=== PATIENT | female | born 1980 | race Caucasian/White ===

== ENCOUNTER 2017-07-09 16:14 | Emergency (ER) | payer MEDICAID ==
[2017-07-09] MEDS: IBUPROFEN 200 MG TAB PO (17:09)
[2017-07-09] MEDS: LORAZEPAM 0.5 MG TAB PO (17:09)
[2017-07-09 18:05] LABS: ADD MAN DIFF? NO
[2017-07-09 18:06] LABS: BASOPHILS % 0.4 % (0.0-2.0); EOSINOPHILS # 0.1 10^3/ul (0.0-0.5); HEMATOCRIT 38.2 % (37.0-47.0); HEMOGLOBIN 12.5 g/dl (12.0-16.0); LYMPHOCYTES # 1.6 10^3/ul (0.8-2.9); LYMPHOCYTES % 22.5 % (15.0-51.0); MEAN CORPUSCULAR HEMOGLOBIN 29.5 pg (29.0-33.0); MEAN CORPUSCULAR HGB CONC 32.7 g/dl (32.0-37.0); MEAN CORPUSCULAR VOLUME 90.1 fl (82.0-101.0); MEAN PLATELET VOLUME 11.2 fl (7.4-10.4); MONOCYTE # 0.5 10^3/ul (0.3-0.9); MONOCYTES % 7.5 % (0.0-11.0); NEUTROPHIL # 4.8 10^3/ul (1.6-7.5); NEUTROPHILS % 68.5 % (39.0-77.0); PLATELET COUNT 256 10^3/UL (140-415); RED BLOOD COUNT 4.24 10^6/ul (4.20-5.40); RED CELL DISTRIBUTION WIDTH 12.7 % (11.5-14.5)
[2017-07-09 18:06] LABS: WHITE BLOOD COUNT 6.9 10^3/ul (4.8-10.8)
[2017-07-09 18:42] LABS: TROPONIN-I < 0.012 ng/ml (0.000-0.120)
== END 2017-07-09 18:56 | disposition home or self-care (01) ==
LOC: FTE 16:14
DX: R20.0 Anesthesia of skin (principal)
CPT/HCPCS: 84484; 85025; 93005; 99284-25